=== PATIENT | female | born 1955 | race Caucasian/White ===

== ENCOUNTER 2021-04-14 16:20 | Inpatient (IN) | payer MEDICARE ==
[~2021-04-14] VITALS: Ht 154.9 cm; Wt 149.7 kg
[2021-04-14 20:14] LABS: CHLORIDE 114 mEq/L (98-107)
[2021-04-14 20:30] LABS: BASOPHILS % 0.4 % (0.0-2.0); EOSINOPHILS % 6.8 % (0.0-5.0); HEMATOCRIT. 40.1 % (36.0-48.0); HEMOGLOBIN. 13.6 g/dL (12.0-16.0); LYMPHOCYTES % 29.1 % (20.0-50.0); MEAN CORPUSCULAR HEMOGLOBIN 32.3 pg (28.0-32.0); MEAN CORPUSCULAR VOLUME 95.1 fL (81.0-99.0); MONOCYTES % 9.1 % (2.0-8.0); NEUTROPHILS % 54.6 % (40.0-76.0); PLATELET 121 x1000/uL (130-400); RED BLOOD CELL COUNT 4.22 mill/uL (4.2-5.4); RED CELL DISTRIBUTION WIDTH 14.5 % (11.6-14.6)
[2021-04-14 21:06] LABS: INR 1.1; PROTHROMBIN TIME 11.4 sec (9.6-11.0)
[2021-04-14] MEDS ORDERED: ACETAMINOPHEN 325MG TABLET PO NR (23:00)
[2021-04-15] VITALS (7 sets, daily range): BP systolic 146–158; BP diastolic 61–90
[2021-04-15] MEDS ORDERED: ONDANSETRON HCL 4MG/2ML INJ IV PRN (08:45)
[2021-04-15] MEDS ORDERED: IOHEXOL-300 100 ML BOTTLE ONE (10:41)
[2021-04-15] MEDS ORDERED: CEFAZOLIN 1000MG PREMIX 50 ML IV ONE (10:42)
[2021-04-15] MEDS ORDERED: LIDOCAINE HCL 1% 20ML VIAL (Pyxis) INJ ONE (10:42)
[2021-04-15] MEDS ORDERED: HEPARIN 1000 UNITS/ML 10ML ONE (10:42)
[2021-04-15] MEDS ORDERED: FENTANYL CITRATE/PF 50MCG/ML 2ML VIAL ONE (10:48)
[2021-04-15] MEDS ORDERED: GABA-529 MT (16:45)
[2021-04-15] MEDS ORDERED: CARV6.2548 MT (16:46)
[2021-04-15] MEDS ORDERED: FURO40TA5 PO (16:47)
[2021-04-15] MEDS ORDERED: METO5TAB7 MT (16:47)
[2021-04-15] MEDS ORDERED: ANAS1TAB49 PO ×2 (17:01→17:05)
[2021-04-15] MEDS ORDERED: LORA2TAB95 MT (17:09)
[2021-04-15] MEDS ORDERED: ATOR40TA70 MT (17:09)
[2021-04-15] MEDS ORDERED: INSU100I28 SQ (17:10)
[2021-04-15] MEDS ORDERED: PREDNISONE 20MG TABLET PO NR (20:00)
[2021-04-15] MEDS: ATORVASTATIN CALCIUM 40MG TABLET PO SCH (20:18)
[2021-04-15] MEDS ORDERED: DEXTROSE 50% WATER 50ML SYRINGE IV PRN (23:00)
[2021-04-15] MEDS: LORAZEPAM 0.5MG TABLET PO PRN (23:17)
[2021-04-15] MEDS ORDERED: INSULIN LISPRO 100 UNITS/ML SUBCUT SCH (23:30)
[2021-04-16] VITALS (20 sets, daily range): BP systolic 133–178; BP diastolic 63–103
[2021-04-16] MEDS: ACETAMINOPHEN 325MG TABLET PO PRN ×2 (00:51→19:24)
[2021-04-16] MEDS ORDERED: PREDNISONE 20MG TABLET PO NR ×2 (02:00→08:00)
[2021-04-16] MEDS ORDERED: BLOOD SUGAR DIAGNOSTIC STRIP TEST SCH (07:20)
[2021-04-16] MEDS ORDERED: INSULIN LISPRO 100 UNITS/ML SUBCUT SCH (07:50)
[2021-04-16] MEDS ORDERED: DIPHENHYDRAMINE 50MG CAPSULE PO NR (08:00)
[2021-04-16] MEDS: GABAPENTIN 100MG CAPSULE PO SCH ×2 (08:05→17:32)
[2021-04-16] MEDS: CARVEDILOL 6.25 MG TABLET PO SCH ×2 (08:06→21:00)
[2021-04-16] MEDS ORDERED: FUROSEMIDE 40MG TABLET PO SCH (09:00)
[2021-04-16] MEDS ORDERED: ANASTROZOLE 1 MG TABLET PO SCH ×2 (09:00)
[2021-04-16] MEDS ORDERED: CEFAZOLIN 1000MG PREMIX 50 ML IV ONE ×2 (09:28→11:00)
[2021-04-16] MEDS ORDERED: FENTANYL CITRATE/PF 50MCG/ML 2ML VIAL ONE (09:28)
[2021-04-16] MEDS ORDERED: INFLUENZA VACCINE 05/PF 0.5 ML SYRINGE IM ONE (10:00)
[2021-04-16] MEDS ORDERED: FENTANYL CITRATE/PF 50MCG/ML 2ML VIAL IV ONE (11:00)
[2021-04-16] MEDS ORDERED: DEXTROSE 50% WATER 50ML SYRINGE IV PRN (11:30)
[2021-04-16] MEDS ORDERED: AMLODIPINE 10MG TABLET PO SCH (11:30)
[2021-04-16] MEDS: BLOOD SUGAR DIAGNOSTIC STRIP TEST SCH ×3 (12:20→21:21)
[2021-04-16] MEDS: INSULIN LISPRO 100 UNITS/ML SUBCUT SCH ×3 (12:48→21:00)
[2021-04-16] MEDS ORDERED: INSULIN GLARGINE UD 100 UNITS/ML SYR SUBCUT NR (13:00)
[2021-04-16] MEDS ORDERED: GUAIFENESIN-DM 200MG-20MG/10ML UDC PO PRN (17:30)
[2021-04-16] MEDS: ATORVASTATIN CALCIUM 40MG TABLET PO SCH (20:39)
[2021-04-16 21:17] LABS: HEPATITIS B SURFACE ANTIGEN NEGATIVE
[2021-04-16] MEDS ORDERED: INSULIN REGULAR (HUMULIN R) 300UNITS/3ML VIAL SUBCUT NR (21:30)
[2021-04-16] MEDS ORDERED: INSULIN GLARGINE UD 100 UNITS/ML SYR SUBCUT SCH (22:00)
[2021-04-17] VITALS: BP 119/62
[2021-04-17] MEDS: LORAZEPAM 0.5MG TABLET PO PRN (01:21)
[2021-04-17 04:00] VITALS: BP 149/81
[2021-04-17 04:01] VITALS: BP 149/81
[2021-04-17] MEDS: BLOOD SUGAR DIAGNOSTIC STRIP TEST SCH (06:32)
== END 2021-04-17 08:37 | disposition home or self-care (01) | DRG 252 ==
LOC: ER 16:20 → MICUSO 04-15 02:09 → EDBEDREQTM 04-15 02:16 → EDBEDREQ 04-15 02:16 → EDBEDREQSVC 04-15 02:16 → EDBEDREQDT 04-15 02:16 → 6WST 04-15 08:42
PROVIDERS: ADMIT Internal Medicine; ATTEND Internal Medicine
PROC: 03C83ZZ Extirpation of Matter from Left Brachial Artery, Percutaneous Approach (ICD-10-PCS; principal; 2021-04-16)
PROC: B51W1ZZ Fluoroscopy of Dialysis Shunt/Fistula using Low Osmolar Contrast (ICD-10-PCS; 2021-04-16)
PROC: 03783ZZ Dilation of Left Brachial Artery, Percutaneous Approach (ICD-10-PCS; 2021-04-16)
PROC: B518ZZZ Fluoroscopy of Superior Vena Cava (ICD-10-PCS; 2021-04-16)
PROC: B51NZZZ Fluoroscopy of Left Upper Extremity Veins (ICD-10-PCS; 2021-04-16)
PROC: 5A1D70Z Performance of Urinary Filtration, Intermittent, Less than 6 Hours Per Day (ICD-10-PCS; 2021-04-16)
DX: T82.868A Thrombosis due to vascular prosthetic devices, implants and grafts, initial encounter (principal); N18.6 End stage renal disease; Z68.44 Body mass index [BMI] 60.0-69.9, adult; I12.0 Hypertensive chronic kidney disease with stage 5 chronic kidney disease or end stage renal disease; E11.22 Type 2 diabetes mellitus with diabetic chronic kidney disease; E87.8 Other disorders of electrolyte and fluid balance, not elsewhere classified; I51.7 Cardiomegaly; E66.01 Morbid (severe) obesity due to excess calories; Z20.822 Contact with and (suspected) exposure to COVID-19; Y83.8 Other surgical procedures as the cause of abnormal reaction of the patient, or of later complication, without mention of misadventure at the time of the procedure; Z99.2 Dependence on renal dialysis; Z95.1 Presence of aortocoronary bypass graft; Z85.3 Personal history of malignant neoplasm of breast; Z91.041 Radiographic dye allergy status; Z79.899 Other long term (current) drug therapy; Y92.89 Other specified places as the place of occurrence of the external cause
CPT/HCPCS: 36415; 36905; 71045; 76937; 80053; 82962; 83036; 85025; 86705; 86709; 86803; 87340; 87426; 93971; 99152; 99153; 99285; C1725; C1766; C1769; C2630; J0690; J1644; J1815; J3010; J3490; J7512; Q0163; Q9967; G0500